=== PATIENT | male | born 1960 | race Two or more races ===

== ENCOUNTER 2017-12-06 03:38 | Emergency (ER) | payer BC, OTHER ==
[~2017-12-06] VITALS: Ht 177.8 cm; Wt 78.0 kg
--- NOTE | 2017-12-06 03:45 | NUR ---
PT BIB [facility] WITH A C/O NEW ONSET WITNESSED SEIZURE. PT ARRIVED POSTICTLE. PT'S IS AT THE BEDSIDE. PT HAD A STROKE 2 WKS AGO. PT ASLO HAS AN AV SHUNT FROM RT HEAD TO RT ABD. PT IS ON THE MONITOR AND CONTINUOUS PULSE OX. SR UP X 2 AND PADDED. RESP EVEN AND UNLABORED.
--- NOTE | 2017-12-06 03:53 | NUR ---
DR. JESUS AT THE BEDSIDE.
[2017-12-06] MEDS ORDERED: IV NS 0.9% 500 ML BAG IV ONE (04:00)
[2017-12-06] MEDS ORDERED: LEVETIRACETAM (500MG) 500 MG in IV NS 0.9% 100 ML IV SCH (04:00)
[2017-12-06] MEDS ORDERED: DICY10CA37 PO (04:02)
[2017-12-06] MEDS ORDERED: ACET325T53 PO (04:02)
[2017-12-06] MEDS ORDERED: ATOR40TA PO (04:02)
[2017-12-06] MEDS ORDERED: MEGE40TA PO (04:02)
[2017-12-06] MEDS ORDERED: CALC-1029 PO (04:02)
[2017-12-06] MEDS ORDERED: DULO20CA PO (04:02)
[2017-12-06] MEDS ORDERED: LEVETIRACETAM (500MG) 500 MG/5 ML VIAL IV ONE (04:08)
[2017-12-06] MEDS ORDERED: LORAZEPAM INJ 2 MG/ML VIAL ONE (04:31)
--- NOTE | 2017-12-06 04:32 | NUR ---
PT PLACED ON 2L O2 VIA NC.
--- NOTE | 2017-12-06 04:32 | NUR ---
PT REC'D MEDICATION ORDERED. PT WAS ABOUT TO GO TO CT, WHEN HE STARTED SEIZING. VERBAL ORDER FOR ATIVAN IVP GIVEN BY DR. JESUS.
[2017-12-06 04:33] LABS: BASOPHILS # (AUTO) 0.3 /CMM (0.0-0.2); BASOPHILS % (AUTO) 3.7 % (0.0-2.0); EOSINOPHILS % (AUTO) 0.1 % (0.0-6.0); HEMATOCRIT 36 % (39-51); HEMOGLOBIN 12.5 g/dL (13.5-17.5); LYMPHOCYTES # (AUTO) 1.1 /CMM (0.8-4.8); LYMPHOCYTES % (AUTO) 14.4 % (20.0-44.0); MEAN CORPUSCULAR HGB CONC 34 g/dl (31.0-36.0); MEAN CORPUSCULAR VOLUME 95 fL (80-96); MONOCYTES # (AUTO) 0.3 /CMM (0.1-1.30); MONOCYTES % (AUTO) 4.2 % (2.0-12.0); NEUTROPHILS # (AUTO) 6.1 /CMM (1.8-8.9); NEUTROPHILS % (AUTO) 77.6 % (43.0-81.0); PLATELET COUNT (AUTO) 351 /CMM (150-450); RDW COEFFICIENT OF VARIATION 14.1 (11.5-15.0); RED BLOOD CELL COUNT(AUTO) 3.82 MIL/uL (4.5-6.0); WHITE BLOOD COUNT (AUTO) 7.8 K/uL (4.3-11.0)
--- NOTE | 2017-12-06 04:35 | NUR ---
SEIZURE STOPPED. KEPPRA INFUSING.
--- NOTE | 2017-12-06 04:38 | NUR ---
PT IS GOING TO CT WITH TOBIAS REID .
[2017-12-06 04:46] LABS: CALCIUM, SERUM 10.1 mg/dL (8.5-10.1); CREATININE 1.2 mg/dL (0.6-1.3)
[2017-12-06 04:49] LABS: INR 0.97 (0.87-1.13)
--- NOTE | 2017-12-06 04:50 | NUR ---
PT RETURNED FROM CT.
[2017-12-06 04:52] LABS: ALBUMIN 4.1 g/dL (3.4-5.0); BILIRUBIN,DIRECT 0.1 mg/dL (0.0-0.2); BILIRUBIN,TOTAL 0.5 mg/dL (0.2-1.0); TOTAL PROTEIN, SERUM 7.7 g/dL (6.4-8.2)
[2017-12-06] MEDS ORDERED: LORAZEPAM INJ 2 MG/ML VIAL IV ONE (05:00)
--- NOTE | 2017-12-06 05:30 | NUR ---
PT APPEARS TO BE RESTING COMFORTABLY. VSS.
--- NOTE | 2017-12-06 05:59 | NUR ---
PT INFORMATION BEING FAXED TO UDAY AT [facility] FOR POSSIBLE TRANSFER OF PT. AWAITING CALL BACK FOR FURTHER INFORMATION. MADE AWARE
--- NOTE | 2017-12-06 06:14 | NUR ---
PT APPEARS TO BE RESTING COMFORTALBY WITH NO S/S OF DISTRESS. PT'S IS AT THE BEDSIDE.
[2017-12-06 06:41] VITALS: BP 136/86
--- NOTE | 2017-12-06 07:06 | NUR ---
RECEIVED INFO FROM [facility]. ROOM NUMBER [id number]; [phone] EXT [phone] FOR REPORT.
--- NOTE | 2017-12-06 07:10 | NUR ---
REPORT GIVEN TO TOBIAS GARNICA FOR [facility].
--- NOTE | 2017-12-06 07:13 | NUR ---
CALLING REPORT TO [facility] NURSE. REPORT GIVEN TO TOBIAS ROSS/CHG
--- NOTE | 2017-12-06 07:20 | NUR ---
ETA OF AMBULANCE IS [id number]
--- NOTE | 2017-12-15 07:31 | NUR ---
IVP R WRIST 22G FOR ATIVAN ORDER
== END 2017-12-06 08:52 | disposition home or self-care (01) ==
LOC: ER 03:42
DX: G40.901 Epilepsy, unspecified, not intractable, with status epilepticus (principal); I10 Essential (primary) hypertension; R40.4 Transient alteration of awareness; R79.1 Abnormal coagulation profile; Z86.73 Personal history of transient ischemic attack (TIA), and cerebral infarction without residual deficits; Z98.2 Presence of cerebrospinal fluid drainage device; Z46.82 Encounter for fitting and adjustment of non-vascular catheter
CPT/HCPCS: 36415; 70450; 80048; 80076; 85025; 85730; 93005; 96365; 96375; 99285; A4606; J1953 ×2; J2060; J7030 ×2; J7040; Z7610